=== PATIENT | male | born 1955 | race Two or more races ===

== ENCOUNTER 2025-05-05 05:50 | Day surgery (SDC) | payer OTHER, SELFPAY ==
--- NOTE | 2025-05-02 10:35 | EKG_ITS ---
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
[2025-05-02 10:38] VITALS: BMI 27.6
[2025-05-02 12:36] LABS: Basophils # (Auto) 0.0 Thou/mm3 (0.0-0.2); Basophils % (Auto) 0 % (0-2.5); Eosinophils # (Auto) 0.3 Thou/mm3 (0.0-0.5); Eosinophils % (Auto) 4 % (0-10); Hematocrit 42.7 % (41.0-53.0); Hemoglobin 14.8 g/dL (13.5-16.0); Immature Granulocytes Auto 0.02 Thou/mm3 (0.00-0.00); Lymphocytes # (Auto) 2.5 Thou/mm3 (1.0-4.8); Lymphocytes % (Auto) 27 % (10-50); Mean Corpuscular HGB Conc 34.7 g/dl (31.0-37.0); Mean Corpuscular Hemoglobin 30.6 pg (25.0-35.0); Mean Corpuscular Volume 88 fL (80-100); Monocytes # (Auto) 0.9 Thou/mm3 (0.0-0.8); Monocytes % (Auto) 10 % (0-12); Neutrophils # (Auto) 5.7 Thou/mm3 (1.8-7.7); Neutrophils % (Auto) 60 % (37-80); Nucleated Red Blood Cell # 0.00 Thou/mm3 (0.00-0.00); Nucleated Red Blood Cell % 0 /100 WBC (0); Platelet Count 309 Thou/mm3 (140-440); RDW Standard Deviation 47.3 fL (35.1-43.9); Red Blood Count 4.83 Miln/mm3 (4.50-5.90); White Blood Count 9.6 Thou/mm3 (3.8-10.6)
[2025-05-02 12:50] LABS: Alanine Aminotransferase 19 U/L (10-49); Albumin, Serum 4.2 gm/dL (3.4-4.8); Albumin/Globulin Ratio 1.3 (1.2-2.2); Alkaline Phosphatase 80 U/L (46-116); Anion Gap 10 (7-16); Aspartate Amino Transferase 24 U/L (0-34); BUN/Creatinine Ratio 11 Ratio (12-20); Bilirubin,Total 0.9 mg/dL (0.3-1.2); Blood Urea Nitrogen 11 mg/dL (9-23); Calcium 9.1 mg/dL (8.3-10.6); Calcium (Corrected) 9.1 mg/dL (8.5-10.1); Carbon Dioxide 26.6 mMol/L (20.0-31.0); Chloride 107 mMol/L (98-107); Creatinine (Component) 1.0 mg/dL (0.6-1.3); Estimated Creatinine Clearance 71.0 mL/min (>60); Globulin 3.2 gm/dL (2.3-3.5); Glucose 105 mg/dL (74-106); Osmolality,Calculated 286 (275-295); Potassium 3.9 mMol/L (3.4-5.1); Sodium 144 mMol/L (136-145); Total Protein 7.4 gm/dL (5.7-8.2); eGFR > 60 See Note
[2025-05-02 13:08] LABS: INR 1.0 (0.9-1.3); Partial Thromboplastin Time 29.1 Seconds (22.0-36.0); Prothrombin Time 11.3 Seconds (9.0-12.2)
--- NOTE | 2025-05-04 15:07 | SUR.PREOP ---
Pt notified to come in tomorrow at 0600.
[2025-05-05] VITALS (8 sets, daily range): BP systolic 128–156; BP diastolic 58–93; PULSE 58–78; RESP 12–21; TEMP 36.1–36.5; O2SAT 95–100; BMI 27.5
[2025-05-05] MEDS: RINGERS LACTATED 1000 ML 1,000 ML 20 ML IV (07:01)
--- NOTE | 2025-05-05 07:19 | EKG_ITS ---
[facility] Test Date: 2025-05-05 Pat Name: ARTHUR CASTELAN Department: Room: - Gender: Male [employer] [place]: [place] : 1955 Requested By: Matthew Nuñez Order Number: [id number] Reading MD: Matthew Nuñez Measurements Intervals [place] Rate: 54 P: 25 IN: 196 QRS: -39 QRSD: 113 T: 84 QT: 467 QTc: 444 Interpretive Statements SINUS BRADYCARDIA WITH OCCASIONAL VENTRICULAR PREMATURE COMPLEXES MARKED LEFT AXIS DEVIATION POSSIBLE LATERAL MYOCARDIAL INFARCTION , OF INDETERMINATE AGE Compared to ECG 05/02/2025 11:11:00 Ventricular premature complex(es) now present Left-axis deviation now present Sinus rhythm no longer present Myocardial infarct finding still present /[id number]/[id number]
--- NOTE | 2025-05-05 07:20 | SUR.PREOP ---
Patient expressed gratitude for prayer before their procedure.
--- NOTE | 2025-05-05 10:42 | SUR.PHASEI ---
1042: Pt. arrived with oral airway in place, vitals stable, breathing unlabored, no signs of distress, dressing to Bilateral lower ABD CDI, no active bleed noted, report received from Sherif BROWN and MD Nuñez.
--- NOTE | 2025-05-05 11:03 | PD.SUROPNT ---
Date of Procedure 05/05/25 Pre Op Diagnosis Bilateral inguinal hernias Post Op Diagnosis Same, large direct hernia on the left side and a small indirect inguinal hernia on the right side Procedure Repair of left direct l inguinal hernias with placement of 3.[address] mesh on the left side and onlay patch with a Marlex mesh measuring 4 x 2 inches Repair of right indirect inguinal hernia with 2 x 4 Marlex mesh the floor of the inguinal canal Findings Patient is found to have a large direct hernia on the left side extending into the scrotum partially and small indirect inguinal hernia on the right side Procedure Description After the patient was given general anesthesia patient was placed in supine position. Lower abdomen was prepped with ChloraPrep solution and draped in a sterile manner. Then the [left] inguinal incision was made for about [7 cm] in length. External oblique was incised and the cord structures were encircled and(. The patient was found to have no indirect sac and it was obvious that the patient had a large direct inguinal hernia because of the bulging medial to the cord structures in the transversalis fascia over hasselbach triangle The cord structures were encircled around a [place] drain. The floor of the inguinal canal was reconstructed as follows: I made an incision in the transversalis fascia which was thin and attenuated. The preperitoneal fat was entered and the used 3 4 x 4's to create a space to place the Ventralex ST mesh mesh measuring [3.2 inches] in diameter. After the mesh was placed in the superior strap was attached to the internal oblique with a 2-0 Prolene. The inferior strap was attached to the shelving edge of the inguinal ligament using 2-0 Prolene. The sponge count was made to confirm that all of them were removed before the mesh was placed in place. At the end of the floor of the inguinal canal appeared to be strong and without any weakness. Then I placed an onlay mesh over the floor and attached it medially to the pubic tubercle with a 2-0 Prolene suture. Laterally it was encircling the cord structures after making a hole in the mesh. The tails of the mesh was tucked underneath the external oblique. After checking for any bleeding point the external oblique was closed with a running 2-0 Vicryl. Subcutaneous tissues was closed with 3``0 plain and I injected half percent Marcaine with epinephrine for analgesia. The subcuticular approximation was performed with 4-0 Monocryl. Dressing was applied with Adaptic and 4 x 4 sponges. Then attention was turned on to the right inguinal hernia standard right groin incision was made in the external oblique was reached. Incision was made over the external oblique and the patient was found to have a small indirect hernia which was protruding through the internal ring. The sac was not opened but it was reduced and I felt the defect easily admitted 1 finger at the internal ring. There was not much sac to ligate at the internal ring. But I placed a 2 x 4 Marlex mesh on the floor on attach it medially to the pubic tubercle and laterally tucked underneath the external oblique 1 stitch was placed with 2-0 Prolene. Thus I closed the internal ring with mesh in the inguinal floor. At the end of the repair appeared sound. Cord structures were kept below the external oblique which was closed with 2-0 Vicryl. Subcutaneous tissue was closed with 3-0 plain and skin was closed with 4-0 Monocryl after injecting for analgesia. Dressing was applied to both sites and the patient was returned to recovery room stable condition. Anesthesia GETA Implants Mesh as described above Pathology / specimen None Estimated Blood Loss 30 Surgeon Riana Palacios MD Surgical Staff Operation Date: 05/05/25 08:00 Case Staff Anesthesiologist: Matthew Nuñez RN First Assistant: Vika Henson
--- NOTE | 2025-05-05 11:46 | SUR.PHASEII ---
1146: Pt. AAOx4, vitals stable, breathing unlabored, no complaint of pain or nausea, bilateral lower ABD dressings CDI, no active bleed noted, pt. tolerated sips of water well, pt. ambulated to wheelchair with steady gait and no assist, no complications. Gave discharge instructions to the pt. and his ride using chair finisher, both verbalized understanding and had no further questions. Pt. left with all personal belongings.
== END 2025-05-05 11:46 | disposition home or self-care (01) ==
PROVIDERS: PCP Student in an Organized Health Care Education/Training Program; Referring Provider Surgery; Visit Provider Surgery
PROC: (CPT 49505; principal; 2025-05-05 08:00)
DX: K40.20 Bilateral inguinal hernia, without obstruction or gangrene, not specified as recurrent (principal); Z01.810 Encounter for preprocedural cardiovascular examination
CPT/HCPCS: 49505; 36415; 80053; 85025; 85610; 85730; 93005; A4217; A4649; C1781; J0131; J0461; J1100; J2250; J2371; J2405; J2704; J3010; J3490; J7120; A9270